=== PATIENT | male | born 1985 | race Caucasian/White ===

== ENCOUNTER 2020-04-15 10:36 | Emergency (ER) | payer OTHER ==
[~2020-04-15] VITALS: Ht 187.9 cm; Wt 99.8 kg
[~2020-04-15 10:36] MED LIST: VICODIN 5/500 505 MG PO
[2020-04-15] MEDS ORDERED: NORCO 5-325 TA1 EACH PO (12:17)
== END 2020-04-15 13:00 | disposition home or self-care (01) ==
LOC: ED 10:36
DX: S92.302A Fracture of unspecified metatarsal bone(s), left foot, initial encounter for closed fracture (principal); Z88.0 Allergy status to penicillin; X58.XXXA Exposure to other specified factors, initial encounter; Y93.89 Activity, other specified; Y92.89 Other specified places as the place of occurrence of the external cause; Y99.8 Other external cause status

== ENCOUNTER 2021-10-20 20:33 | Emergency (ER) | payer BC ==
[~2021-10-20 20:33] MED LIST changes: +NORCO 5-325 TA1 EACH PO
== END 2021-10-20 21:36 | disposition home or self-care (01) ==
LOC: ED 20:33
DX: S05.01XA Injury of conjunctiva and corneal abrasion without foreign body, right eye, initial encounter (principal); Z88.0 Allergy status to penicillin; Y08.89XA Assault by other specified means, initial encounter; Y93.89 Activity, other specified; Y92.89 Other specified places as the place of occurrence of the external cause; Y99.8 Other external cause status